=== PATIENT | male | born 1960 | race Hispanic/Latino ===

== ENCOUNTER 2018-07-21 11:43 | Emergency (ER) | payer OTHER ==
--- NOTE | 2018-07-21 12:51 | RAD REPORT ---
EXAM DESCRIPTION: CT - CTHCSPWOC - 07/21/2018 12:36 pm CLINICAL HISTORY: Trauma, head and neck injury. PAIN COMPARISON: No comparisons TECHNIQUE: Axial 5 mm thick images of the head were obtained. Axial 2 mm thick images of the cervical spine were obtained with sagittal and coronal reconstruction images generated and reviewed. All CT scans are performed using dose optimization technique as appropriate and may include automated exposure control or mA/KV adjustment according to patient size. FINDINGS: CT HEAD WITHOUT CONTRAST: No acute hemorrhage, hydrocephalus or extra-axial collection is identified.No areas of brain edema or midline shift. Mild mucosal thickening affects the right maxillary antrum. The paranasal sinuses and mastoids are ot herwise clear.The calvarium is intact. CT CERVICAL SPINE WITHOUT CONTRAST: No fracture or subluxation.No prevertebral soft tissues swelling is identified. IMPRESSION: No acute intracranial or cervical spine findings.
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
== END 2018-07-21 13:46 | disposition home or self-care (01) ==
LOC: ER 11:43
DX: M54.2 Cervicalgia (principal)
CPT/HCPCS: 70450; 72125; 99284

== ENCOUNTER 2021-10-02 22:51 | Emergency (ER) | payer BC, OTHER ==
[2021-10-02] MEDS ORDERED: ONDANSETRON 4 MG/2 ML VIAL ONE (23:37)
[2021-10-02] MEDS ORDERED: NA CHLORIDE 0.9% 1,000 ML ONE (23:37)
[2021-10-03 06:06] LABS: ALT/SGPT 32 U/L (12-78); AST/SGOT 22 U/L (15-37); Albumin 3.7 g/dL (3.4-5.0); Alkaline Phosphatase 44 U/L (45-117); BUN Blood Urea Nitrogen 20 mg/dL (7-18); Bicarbonate 26 mmol/L (21-32); Bilirubin Total 0.6 mg/dL (0.2-1.0); Glucose Level 123 mg/dL (74-106); Lipase 110 U/L (73-393); Potassium 4.2 mmol/L (3.5-5.1); Protein, Total 7.3 g/dL (6.4-8.2); Sodium Level 138 mmol/L (136-145)
[2021-10-03 06:12] LABS: Absolute Lymphocytes (CBC) 1.2 K/uL (0.7-4.9); Hematocrit 43.8 % (39.6-49.0); MPV 7.6 fL (7.6-11.3); RBC Red Blood Cell Count 4.91 M/uL (4.33-5.43)
[2021-10-03 06:15] LABS: SARS-COV-2 RT PCR NEGATIVE (NEGATIVE)
--- NOTE | 2021-10-03 11:58 | RAD REPORT ---
EXAM DESCRIPTION: CT - Abdomen Pelvis W Contrast - 10/03/2021 4:59 am CLINICAL HISTORY: 61 years, Male, PAIN COMPARISON: None. TECHNIQUE: Contrast-enhanced images of the abdomen and pelvis were performed utilizing 5 mm slice th ickness at 5 mm interval reconstruction from the lung bases to the ischial tuberosities after the adm inistration IV contrast. In addition multiplanar reformats in the coronal and sagittal plane were obtained and reviewed. This exam was performed according to our departmental dose-optimization protocol, which includes auto mated exposure control, adjustment of the mA and/or kV according to patient size and/or use of iterat angi reconstruction technique. FINDINGS: The lung bases demonstrate very minimal dependent atelectatic changes. Mild elevation of t he right hemidiaphragm.. The liver, gallbladder, pancreas, spleen and adrenal glands demonstrate to be unremarkable, no focal lesions are noted. The kidneys demonstrate normal uptake of contrast media. No evidence for nephrolithiasis and/or hydro nephrosis. Grossly the unopacified stomach, small bowel and large bowel demonstrate to be within normal limits. There is no evidence for bowel dilatation/or free air. The appendix is normal. There is mild feca l stasis The urinary bladder demonstrate to be distended. The prostate gland is slightly prominent perhaps r elated to BPH. The aorta demonstrate to be normal. There is no retroperitoneal lymphadenopathy. T here is no evidence for ascites/or significant abnormal fluid collection. There is a small bilateral inguinal hernias containing omentum, greater left than right. The bone windows demonstrate minimal degenerative changes L5/S1. IMPRESSION: UNREMARKABLE CT SCAN OF THE ABDOMEN AND PELVIS WITH CONTRAST. Electronically signed by: Jerry Miller MD 10/03/2021 1:59 AM CDT Due to temporary technical issues with the PACS/Fluency reporting system, reports are being signed by the in house radiologists without review as a courtesy to insure prompt reporting. The interpreting radiologist is fully responsible for the content of the report.
--- NOTE | 2021-10-03 12:55 | EDPHYS ---
Physician Documentation [facility] Name: Elías George Age: 61 yrs Sex: Male : 1960 Arrival Date: 10/02/2021 Time: 22:54 Bed 2 Private MD: ED Physician Lucas Luque HPI: 10/02 23:22 This 61 yrs old Male presents to ER via Unassigned with complaints of rn Abdominal Pain. 23:22 The patient presents with abdominal pain. The patient presents with abdominal pain in rn the lower abdomen, in the left lower quadrant. Onset: The symptoms/episode began/occurred today. The symptoms do not radiate. Associated signs and symptoms: Pertinent positives: nausea, Pertinent negatives: blood in stools, fever, shortness of breath, testicular pain, vomiting, vomiting blood. The symptoms are described as achy, crampy. Modifying factors: The symptoms are alleviated by nothing, the symptoms are aggravated by nothing. Severity of pain: At its worst the pain was moderate in the emergency department the pain has improved. The patient has not experienced similar symptoms in the past. The patient has not recently seen a physician. Pt reports intermittent lower abd pain, worse in LLQ, assoc with nausea and some diarrhea. No sick contacts. No fever. No blood in stool. NO trauma. . Historical: - Allergies: 23:24 No Known Allergies; as6 - Home Meds: 23:24 None [Active]; as6 - PMHx: 23:24 None; as6 - PSHx: 23:24 None; as6 - Immunization history:: Client reports receiving the 2nd dose of the Covid vaccine, moderna . - Social history:: Smoking status: Patient denies any tobacco usage or history of. Patient/guardian denies using alcohol. - Family history:: not pertinent. - Hospitalizations: : No recent hospitalization is reported. ROS: 23:22 Constitutional: Negative for fever, chills, and weight loss, Eyes: Negative for injury, rn pain, redness, and discharge, ENT: Negative for injury, pain, and discharge, Neck: Negative for injury, pain, and swelling, Cardiovascular: Negative for chest pain, palpitations, and edema, Respiratory: Negative for shortness of breath, cough, wheezing, and pleuritic chest pain, Abdomen/GI: + lower abd pain and nausea Back: Negative for injury and pain, : Negative for injury, bleeding, discharge, and swelling, MS/Extremity: Negative for injury and deformity, Skin: Negative for injury, rash, and discoloration, Neuro: Negative for headache, weakness, numbness, tingling, and seizure. 23:22 All other systems are negative. Exam: 23:22 Constitutional: This is a well developed, well nourished patient who is awake, alert, rn and in no acute distress. Head/Face: Normocephalic, atraumatic. Eyes: Periorbital areas with no swelling, redness, or edema. ENT: MMM Cardiovascular: Regular rate and rhythm. No pulse deficits. Respiratory: No increased work of breathing, no retractions or nasal flaring. Abdomen/GI: soft, + tender LUQ and LLQ, no rebound, no masses Skin: Warm, dry MS/ Extremity: Pulses equal, no cyanosis. Neuro: Awake and alert, GCS 15 Vital Signs: 23:21 BP 153 / 94; Pulse 71; Resp 18 S; Temp 98.8(O); Pulse Ox 99% on R/A; Weight 84.37 kg as6 (R); Height 5 ft. 10 in. (177.80 cm) (R); Pain 8/10; 10/03 00:54 BP 123 / 74; Pulse 71; Resp 18 S; Pulse Ox 97% on R/A; as6 02:13 BP 124 / 87; Pulse 61; Resp 18 S; Pulse Ox 99% on R/A; as6 10/02 23:21 Body Mass Index 26.69 (84.37 kg, 177.80 cm) as6 MDM: 10/02 23:04 Patient medically screened. rn 10/03 02:06 Differential diagnosis: appendicitis, bowel obstruction, diverticulitis, non-specific rn abd pain, obstruction, enteritis, colitis, viral infection. Data reviewed: vital signs, nurses notes, lab test result(s), radiologic studies, CT scan, and as a result, I will discharge patient. Counseling: I had a detailed discussion with the patient and/or guardian regarding: the historical points, exam findings, and any diagnostic results supporting the discharge/admit diagnosis, lab results, radiology results, the need for outpatient follow up, to return to the emergency department if symptoms worsen or persist or if there are any questions or concerns that arise at home. Response to treatment: the patient's symptoms have mildly improved after treatment, and as a result, I will discharge patient. Special discussion: Based on the patient's Hx, exam, and Dx evaluation, there is no indication for emergent surgery or inpatient Tx. It is understood by the patient/guardian that if the Sx's persist or worsen they need to return immediately for re-evaluation. I discussed with the patient/guardian in detail that at this point there is no indication for admission to the hospital. It is understood, however, that if the symptoms persist or worsen the patient needs to return immediately for re-evaluation. ED course: CT abdomen no acute findings. Most likely viral syndrome. Stable vitals, feels better, will dc home. . 02:26 ED course: Pain resolved, states feels much better. . rn 10/02 23:08 Order name: IV Saline Lock; Complete Time: 23:27 rn 10/02 23:08 Order name: Labs collected and sent; Complete Time: 23:27 rn Administered Medications: 10/02 23:36 Drug: NS 0.9% 1000 ml Route: IV; Rate: 1000 ml; Site: right antecubital; as6 10/03 01:25 Follow up: Response: No adverse reaction; IV Status: Completed infusion; IV Intake: as6 1000ml 10/02 23:37 Drug: Zofran (Ondansetron) 4 mg Route: IVP; Site: right antecubital; as6 10/03 01:26 Follow up: Response: No adverse reaction as6 Disposition Summary: 10/03/21 02:12 Discharge Ordered Location: Home rn Problem: new rn Symptoms: have improved rn Condition: Stable rn Diagnosis - Abdominal pain, unspecified rn - Nausea rn Followup: rn - With: Private Physician - When: As needed - Reason: Recheck today's complaints, Re-evaluation by your physician Discharge Instructions: - Discharge Summary Sheet rn - Abdominal Pain, Adult rn - Nausea, Adult rn Forms: - Medication Reconciliation Form rn - Thank You Letter rn - Antibiotic internal recruiter - Prescription Opioid Use rn Prescriptions: - ondansetron 4 mg Oral tablet,disintegrating - take 1 tablet by ORAL route every 8 hours As needed; 10 tablet; Refills: 0, rn Product Selection Permitted Signatures: Lucas Luque MD MD rn Luis Dangelo, ALBA RN as6
--- NOTE | 2021-10-03 12:55 | ER ---
Nurse's Notes [facility] Name: Elías George Age: 61 yrs Sex: Male : 1960 Arrival Date: 10/02/2021 Time: 22:54 Bed 2 Private MD: Diagnosis: Abdominal pain, unspecified;Nausea Presentation: 10/02 23:21 Chief complaint: Patient states: "I've been having this pain all day and I'm having as6 trouble going to the bathroom" pt c/o abdominal pain and nausea. Coronavirus screen: At this time, the client does not indicate any symptoms associated with coronavirus-19. Ebola Screen: No symptoms or risks identified at this time. Initial Sepsis Screen: Does the patient meet any 2 criteria? No. Patient's initial sepsis screen is negative. Does the patient have a suspected source of infection? No. Patient's initial sepsis screen is negative. Risk Assessment: Do you want to hurt yourself or someone else? Patient reports no desire to harm self or others. Onset of symptoms was October 02, 2021. 23:21 Method Of Arrival: Ambulatory as6 23:21 Acuity: SUJATA 3 as6 Historical: - Allergies: 23:24 No Known Allergies; as6 - Home Meds: 23:24 None [Active]; as6 - PMHx: 23:24 None; as6 - PSHx: 23:24 None; as6 - Immunization history:: Client reports receiving the 2nd dose of the Covid vaccine, moderna . - Social history:: Smoking status: Patient denies any tobacco usage or history of. Patient/guardian denies using alcohol. - Family history:: not pertinent. - Hospitalizations: : No recent hospitalization is reported. Screenin:25 Abuse screen: Denies threats or abuse. Denies injuries from another. Nutritional as6 screening: No deficits noted. Tuberculosis screening: No symptoms or risk factors identified. Fall Risk None identified. Assessment: 23:25 General: Appears in no apparent distress. Behavior is calm, cooperative. Pain: as6 Complains of pain in abdomen Quality of pain is described as crampy, Is intermittent. Neuro: Level of Consciousness is awake, alert, obeys commands, Oriented to person, place, time, situation. Cardiovascular: Capillary refill < 3 seconds Patient's skin is warm and dry. Respiratory: Airway is patent Trachea midline Respiratory effort is even, unlabored, Respiratory pattern is regular, symmetrical. GI: Bowel sounds present X 4 quads. Abd is soft Reports lower abdominal pain, upper abdominal pain, constipation, nausea. Vital Signs: 23:21 BP 153 / 94; Pulse 71; Resp 18 S; Temp 98.8(O); Pulse Ox 99% on R/A; Weight 84.37 kg as6 (R); Height 5 ft. 10 in. (177.80 cm) (R); Pain 8/10; 10/03 00:54 BP 123 / 74; Pulse 71; Resp 18 S; Pulse Ox 97% on R/A; as6 02:13 BP 124 / 87; Pulse 61; Resp 18 S; Pulse Ox 99% on R/A; as6 10/02 23:21 Body Mass Index 26.69 (84.37 kg, 177.80 cm) as6 ED Course: 10/02 22:54 Patient arrived in ED. bp1 23:04 Lucas Luque MD is Attending Physician. rn 23:08 Luis Dangelo RN is Primary Nurse. as6 23:24 Triage completed. as6 23:24 Arm band placed on. as6 23:25 Placed in gown. Bed in low position. Call light in reach. Side rails up X2. Adult w/ as6 patient. Pulse ox on. NIBP on. 23:27 Inserted saline lock: 20 gauge in right antecubital area, using aseptic technique. ds4 Blood collected. 10/03 02:45 No provider procedures requiring assistance completed. IV discontinued, intact, as6 bleeding controlled, No redness/swelling at site. Pressure dressing applied. Administered Medications: 10/02 23:36 Drug: NS 0.9% 1000 ml Route: IV; Rate: 1000 ml; Site: right antecubital; as6 10/03 01:25 Follow up: Response: No adverse reaction; IV Status: Completed infusion; IV Intake: as6 1000ml 10/02 23:37 Drug: Zofran (Ondansetron) 4 mg Route: IVP; Site: right antecubital; as6 10/03 01:26 Follow up: Response: No adverse reaction as6 Intake: 01:25 IV: 1000ml; Total: 1000ml. as6 Outcome: 02:12 Discharge ordered by . rn 02:49 Discharged to home ambulatory, with significant other. as6 02:49 Condition: stable 02:49 Discharge instructions given to patient, family, Instructed on discharge instructions, follow up and referral plans. medication usage, Demonstrated understanding of instructions, follow-up care, medications, Prescriptions given X 1. 02:49 Patient left the ED. as6 Signatures: Lucas Luque MD MD rn Paul Mays4 Nicci Iniguez Ashby, ALBA RN as6
[2021-10-03 13:48] VITALS: TEMP 98.8
[2021-10-03 13:52] VITALS: BP 124/87; O2SAT 99
--- NOTE | 2021-10-07 21:23 | PN ---
Date of Progress Note: 10/07/2021 Subjective: Patient seems somewhat more oriented today and has requested going home, which is the fi rst time since he has been here, however, his magnesium has dropped and continues to have some anorex ia. His hydration status is an issue. I feel he will need 1 more day of hospitalization, monitoring magnesium replacement and he could be discharged in the a.m.. Placement has been discussed with the family and preferably it will be at home where he seems to have 24/7 help and I agree this is better than the other options that are available to him and he can continue to undergo his weekly paracente sis in [place] and when he get to himself, present here to the emergency room for some IV hydration, H and H have dropped slightly but I feel this is hydration factor. The ascitic fluid cultures are ne gative and as his stool guaiac. HR/MODL Voice ID: [id number] Report ID: [id number]
== END 2021-10-03 02:49 | disposition home or self-care (01) ==
LOC: ER 22:51
DX: R10.32 Left lower quadrant pain (principal); R11.0 Nausea; R63.0 Anorexia; Z20.822 Contact with and (suspected) exposure to COVID-19
CPT/HCPCS: 96361; 85025; 36415; 83690; 80053; 0240U; 74177; 96374; 99284; Q9967; J7030; J2405

== ENCOUNTER 2024-07-23 07:46 | Inpatient (IN) | payer BC ==
--- OUTSIDE RECORDS SUMMARY | 2024-07-23 07:48 | XMS REPORT | Continuity of Care Document ---
Author Name Unknown Address [address] [place] [address] [address]. [address] th[address] Address [address] [place] [address]. [address] [place] [address] Care Team Providers Care E Learning Designer Name Role Phone Unavailable Unavailable Unavailable Encounters Start Date/Time End Date/Time Encounter Type Admission Type Attending Clinicians Care Facility Care Department Encounter ID Source 2023-09-27 08:07:40 2023-09-27 08:07:40 Outpatient [facility] [id number] Manuelito Barney
[2024-07-23] MEDS ORDERED: MORPHINE 4 MG/ML SYR ONE ×2 (08:41→09:53)
[2024-07-23] MEDS ORDERED: FAMOTIDINE 20 MG/2 ML VIAL IV ONE (08:41)
[2024-07-23] MEDS ORDERED: ONDANSETRON 4 MG/2 ML VIAL ONE ×2 (08:41→13:57)
[2024-07-23 08:45] LABS: Absolute Lymphocytes (CBC) 1.5 K/uL (0.7-4.9); Absolute Monocytes 0.6 K/uL (0.1-1.3); Absolute Neutrophil 6.4 K/uL (1.8-8.0); Basophils % 0.5 % (0-1.3); Eosinophils % 0.2 % (0-4.4); Hematocrit 42.8 % (39.6-49.0); Hemoglobin 14.5 g/dL (13.6-17.9); Lymphocytes % 17.8 % (15.3-44.8); MCH 29.8 pg (27.0-35.0); MCHC 33.9 g/dL (32.0-36.0); MCV 87.9 fL (80-100); MPV 6.8 fL (7.6-11.3); Monocytes % 6.5 % (3.3-12.3); Platelets 265 thou/uL (152-406); RBC Red Blood Cell Count 4.87 M/uL (4.33-5.43)
[2024-07-23 08:57] LABS: Albumin 3.6 g/dL (3.4-5.0); Albumin/Globulin Ratio 0.9 (1.1-1.8); Anion Gap 7.3 mEq/L (5.0-15.0); Bilirubin Total 1.1 mg/dL (0.2-1.0); Globulin 3.9 g/dL (2.3-3.5); Potassium 3.3 mEq/L (3.5-5.1); Protein, Total 7.5 g/dL (6.4-8.2)
--- NOTE | 2024-07-23 10:58 | RAD REPORT ---
EXAMINATION: CT ABDOMEN AND PELVIS WITH CONTRAST CLINICAL INDICATION: Abdominal pain TECHNIQUE: CT abdomen and pelvis was performed, after the administration of 100 cc Isovue-300.. Sagit daron and coronal reconstructions were obtained. One or more of the following dose reduction techniques were used: Automated exposure control, adjustment of the mA and kV according to patient si ze, and iterative reconstruction. Unless otherwise specified, incidental findings do not require dedicated imaging follow-up. [id number]. Oral contrast was not given which limits evaluation of bowel and appendix. COMPARISON: .2021 FINDINGS: Images are degraded by patient motion artifact Liver, spleen, pancreas, and adrenals appear unremarkable Small renal cysts. Large left inguinal hernia contains sigmoid colon.. Mild stranding within the desiree iated fat. The proximal colon is mildly to moderately dilated.. Small amount of ascites Small right inguinal hernia Normal appendix. : IMPRESSION: Left inguinal hernia contains sigmoid colon and results in an obstruction
--- NOTE | 2024-07-23 11:08 | EDPHYS ---
Physician Documentation [facility] Name: Elías George Age: 64 yrs Sex: Male : 1960 Arrival Date: 07/23/2024 Time: 07:46 Bed 17 Private MD: ED Physician Ivan Ornelas HPI: 07/23 10:32 This 64 yrs old Male presents to ER via Ambulatory with complaints of ms3 Abdominal Pain, Constipation, Vomiting. 10:32 Elías George is a 64-year-old male presenting to the emergency department with ms3 abdominal pain and constipation since Tuesday. He reports generalized abdominal pain and has not had a bowel movement since the symptoms started. He attempted to relieve constipation with a suppository last night, but it was ineffective. Elías also reports vomiting all day yesterday, but not this morning before coming to the emergency department. He mentions the vomiting occurs after eating. The abdominal pain sometimes increases when he sits down, and he experiences pain in the area where he has had a hernia in the past. . Historical: - Allergies: 07:57 No Known Allergies; ll1 - Home Meds: 07:57 None [Active]; ll1 - PMHx: 07:57 None; ll1 - PSHx: 07:57 None; ll1 - Immunization history:: Adult Immunizations up to date. - Infectious Disease History:: Denies. - Social history:: Smoking status: Patient denies any tobacco usage or history of. ROS: 10:32 Constitutional: Negative for fever, and chills. Cardiovascular: Negative for chest ms3 pain, and palpitations. Respiratory: Negative for shortness of breath, cough, wheezing, and pleuritic chest pain, 10:32 Abdomen/GI: Positive for abdominal pain, nausea and vomiting, constipation, 10:32 All other systems are negative, Exam: 10:32 Constitutional: This is a well developed, well nourished patient who is awake, alert, ms3 and in no acute distress. Cardiovascular: Regular rate and rhythm with a normal S1 and S2. No gallops, murmurs, or rubs. Normal PMI, no JVD. No pulse deficits. Respiratory: Lungs have equal breath sounds bilaterally, clear to auscultation and percussion. No rales, rhonchi or wheezes noted. No increased work of breathing, no retractions or nasal flaring. Abdomen/GI: Soft, non-tender, with normal bowel sounds. No distension or tympany. No guarding or rebound. No evidence of tenderness throughout. Skin: Warm, dry with normal turgor. Normal color with no rashes, no lesions, and no evidence of cellulitis. 12:00 ECG was reviewed by the Attending Physician. ms3 Vital Signs: 07:57 BP 153 / 80; Pulse 78; Resp 16; Temp 98.2; Pulse Ox 96% on R/A; Weight 86.18 kg; Height ll1 5 ft. 6 in. ; Pain 10/10; 09:00 BP 151 / 78; Pulse 64; Resp 16 S; Pulse Ox 98% on R/A; aa5 10:40 BP 146 / 78; Pulse 72; Resp 16 S; Pulse Ox 96% on R/A; aa5 13:22 BP 139 / 82; Pulse 74; Resp 18; Temp 98; Pulse Ox 100% on R/A; kj2 07:57 Body Mass Index 30.67 (86.18 kg, 167.64 cm) ll1 07:57 Pain Scale: Adult ll1 MDM: 08:21 Medical Screening Exam initiated ms3 10:32 Differential diagnosis: Nonspecific abd pain, cholecystitis, pancreatitis, ms3 diverticulitis, Bowel obstruction. 11:07 Data reviewed: vital signs, nurses notes, lab test result(s), radiologic studies, and ms3 as a result, I will admit patient. Consideration of Admission/Observation Patient was admitted/placed on observation. Management of patient was discussed with the following: Hospitalist: Dr Luque. Gas Processing Plant Operator: Dr Villanueva- Keep NPO. I considered the following discharge prescriptions or medication management in the emergency department Medications were administered in the Emergency Department. See MAR. Counseling: I had a detailed discussion with the patient and/or guardian regarding the historical points, exam findings, and any diagnostic results supporting the discharge/admit diagnosis, lab results, radiology results, the need for further work-up and treatment in the hospital. Special discussion:. ED course: Left inguinal hernia unable to be reduced in the emergency department. Case was discussed with Dr. Villanueva and patient will need to be cleared for the operating room. He would like patient to remain NPO. Discussed case with hospitalist team and they accept patient.. 07/23 08:19 Order name: CBC with Diff; Complete Time: 09:56 ll1 07/23 08:19 Order name: CMP; Complete Time: 09:56 ll1 07/23 08:19 Order name: Lipase; Complete Time: 09:56 ll1 07/23 08:21 Order name: CT Abd/Pelvis - IV Contrast Only; Complete Time: 11:01 ms3 07/23 11:30 Order name: Chest Single View XRAY la1 07/23 12:38 Order name: RAD EDMS 07/23 11:30 Order name: EKG; Complete Time: 11:30 la1 07/23 08:19 Order name: IV Saline Lock; Complete Time: 08:34 ll1 07/23 08:19 Order name: Labs collected and sent; Complete Time: 08:34 ll1 07/23 11:30 Order name: EKG - Nurse/Tech; Complete Time: 11:58 la1 EC:00 Rate is 65 beats/min. Rhythm is regular. QRS Mcclure is Normal. DC interval is normal. QRS ms3 interval is normal. Clinical impression: Normal ECG. Interpreted by me. Reviewed by me. Administered Medications: 08:50 Drug: Famotidine IVP 20 mg IVP once; dilute with 10 mL 0.9% NaCl; give over 2 minutes aa5 Route: IVP; Site: left forearm; 09:00 Follow up: Response: No adverse reaction aa5 08:50 Drug: Ondansetron IVP 4 mg IVP once; over 2 minutes Route: IVP; Site: left forearm; aa5 09:00 Follow up: Response: No adverse reaction aa5 08:51 Drug: morphine IVP or IV 4 mg IVP once over 4 mins Route: IVP; Infused Over: 4 mins; aa5 Site: left forearm; 09:00 Follow up: Response: No adverse reaction aa5 10:02 Drug: morphine IVP or IV 4 mg IVP once over 4 mins Route: IVP; Infused Over: 4 mins; aa5 Site: left forearm; 10:10 Follow up: Response: No adverse reaction aa5 11:50 Drug: Piperacillin-Tazobactam IVPB 3.375 grams IVPB once over 60 mins; (mix in NS 100 aa5 mL) Route: IVPB; Infused Over: 60 mins; Site: left forearm; Disposition Summary: 07/23/24 11:07 Hospitalization Ordered Notes: Hospitalization Status: Inpatient Admission ms3 Provider: Keon Luque ms3 Condition: Stable ms3 Problem: new ms3 Symptoms: are unchanged ms3 Bed/Room Type: Standard ms3 Location: [facility] ER HOLD(07/23/24 12:39) bd Room Assignment: ERHOLD-(07/23/24 12:39) bd Diagnosis - Unilateral inguinal hernia, with obstruction, without gangrene, not specified as ms3 recurrent - Bowel obstruction ms3 - Nausea with vomiting, unspecified ms3 Forms: - Medication Reconciliation Form ms3 - SBAR form ms3 - Leadership Thank You Letter ms3 Signatures: Dispatcher [employer] EDMS Emelyn Wells Audri, RN RN aa5 Tacho Corona, WEATHERIZATION TECHNICIAN-C WEATHERIZATION TECHNICIAN-Cla1 Alexander Munoz RN RN ll1 Ivan Ornelas, DO ms3 Corrections: (The following items were deleted from the chart) 08:19 08:19 CBC+H.LAB.BRZ ordered. EDMS EDMS 08:19 08:19 COMPREHENSIVE METABOLIC PANEL+C.LAB.BRZ ordered. EDMS EDMS 08:19 08:19 LIPASE+C.LAB.BRZ ordered. EDMS EDMS 08:21 08:21 Abdomen Pelvis W Con+CT.RAD.BRZ ordered. EDMS EDMS 12:39 11:07 Telemetry/MedSurg (Inpatient) ms3 bd 12:39 11:07 ms3 bd
--- NOTE | 2024-07-23 11:08 | ER ---
Nurse's Notes [facility] Name: Elías George Age: 64 yrs Sex: Male : 1960 Arrival Date: 07/23/2024 Time: 07:46 Bed 17 Private MD: Diagnosis: Unilateral inguinal hernia, with obstruction, without gangrene, not specified as recurrent;Bowel obstruction;Nausea with vomiting, unspecified Presentation: 07/23 07:57 Chief complaint: Patient states: Abdominal pain with constipation since Tuesday ll1 morning. N/V began yesterday. No fever. Coronavirus screen: Client denies travel out of the [place] in the last 14 days. fatigue, nausea, vomiting. Client presents with at least one sign or symptom that may indicate coronavirus-19. Standard/surgical mask placed on the client. Ebola Screen: Patient denies travel to an Ebola-affected area in the 21 days before illness onset. Initial Sepsis Screen: Does the patient meet any 2 criteria? No. Patient's initial sepsis screen is negative. Does the patient have a suspected source of infection? No. Patient's initial sepsis screen is negative. Risk Assessment: Do you want to hurt yourself or someone else? Patient reports no desire to harm self or others. Onset of symptoms was July 21, 2024. 07:57 Method Of Arrival: Ambulatory ll1 07:57 Acuity: SUJATA 3 ll1 Triage Assessment: 07:59 General: Appears uncomfortable, Behavior is calm, cooperative, appropriate for age. ll1 Pain: Complains of pain in abdomen Pain currently is 10 out of 10 on a pain scale. Quality of pain is described as aching, crampy. GI: Reports lower abdominal pain, upper abdominal pain, constipation, cramping, nausea, vomiting. Historical: - Allergies: 07:57 No Known Allergies; ll1 - Home Meds: 07:57 None [Active]; ll1 - PMHx: 07:57 None; ll1 - PSHx: 07:57 None; ll1 - Immunization history:: Adult Immunizations up to date. - Infectious Disease History:: Denies. - Social history:: Smoking status: Patient denies any tobacco usage or history of. Screenin:[address] [facility] ED Fall Risk Assessment (Adult) History of falling in the last 3 months, aa5 including since admission No falls in past 3 months (0 pts) Confusion or Disorientation No (0 pts) Intoxicated or Sedated No (0 pts) Impaired Gait No (0 pts) Mobility Assist Device Used No (0 pt) Altered Elimination No (0 pt) Score/Fall Risk Level 0 - 2 = Low Risk Oriented to surroundings, Maintained a safe environment, Educated pt \T\ family on fall prevention, incl call for assistance when getting out of bed, Assessed \T\ reinforced patient's understanding of fall precautions. Abuse screen: Denies threats or abuse. Nutritional screening: No deficits noted. Tuberculosis screening: No symptoms or risk factors identified. Assessment: 08:20 General: Appears uncomfortable, Behavior is calm, cooperative. Pain: Complains of pain aa5 in right upper quadrant, left upper quadrant, right lower quadrant and left lower quadrant Pain currently is 10 out of 10 on a pain scale. Quality of pain is described as crampy, sharp, Pain began 2-3 days ago. Is intermittent, episodic, lasting a few minutes. Noted to be guarding. Neuro: Level of Consciousness is awake, alert, obeys commands, Oriented to person, place, time, situation. Cardiovascular: Heart tones S1 S2 present Patient's skin is warm and dry. Rhythm is regular. Respiratory: Airway is patent Respiratory effort is even, unlabored, Respiratory pattern is regular, symmetrical. GI: Abdomen is round non-distended, Bowel sounds present X 4 quads. Abd is soft and non tender X 4 quads. Reports lower abdominal pain, upper abdominal pain, constipation, Reports nausea/vomiting since yesterday. : No signs and/or symptoms were reported regarding the genitourinary system. EENT: No signs and/or symptoms were reported regarding the EENT system. Derm: Skin is pink, warm \T\ dry. Musculoskeletal: Range of motion: intact in all extremities. 10:00 Reassessment: Patient is alert, oriented x 3, equal unlabored respirations, skin aa5 warm/dry/pink. Patient states symptoms have not improved. MD notified of unchanged pain level. . 10:15 Reassessment: Pt to CT scan . aa5 10:40 Reassessment: Patient is alert, oriented x 3, equal unlabored respirations, skin aa5 warm/dry/pink. Patient states feeling better. Pt reports he vomited bile in CT scan, bile noted to gown, new gown applied. . 11:04 Reassessment: Dr. Ornelas at bedside . aa5 13:21 Reassessment: Patient appears in no apparent distress at this time. Patient and/or kj2 family updated on plan of care and expected duration. Pain level reassessed. Patient is alert, oriented x 3, equal unlabored respirations, skin warm/dry/pink. OR nurse arrived to take to surgery. Vital Signs: 07:57 BP 153 / 80; Pulse 78; Resp 16; Temp 98.2; Pulse Ox 96% on R/A; Weight 86.18 kg; Height ll1 5 ft. 6 in. ; Pain 10/10; 09:00 BP 151 / 78; Pulse 64; Resp 16 S; Pulse Ox 98% on R/A; aa5 10:40 BP 146 / 78; Pulse 72; Resp 16 S; Pulse Ox 96% on R/A; aa5 13:22 BP 139 / 82; Pulse 74; Resp 18; Temp 98; Pulse Ox 100% on R/A; kj2 07:57 Body Mass Index 30.67 (86.18 kg, 167.64 cm) ll1 07:57 Pain Scale: Adult ll1 ED Course: 07:50 Patient arrived in ED. im 07:50 Arm band placed on Patient placed in an exam room, on a stretcher. ll1 07:51 Ivan Ornelas DO is Attending Physician. ms3 07:59 Triage completed. ll1 08:05 Carla Sanchez, RN is Primary Nurse. aa5 08:20 Patient has correct armband on for positive identification. Placed in gown. Bed in low aa5 position. Call light in reach. Side rails up X 1. Adult w/ patient. Pulse ox on. NIBP on. 08:34 CBC with Diff Sent. ty 08:34 CMP Sent. ty 08:34 Lipase Sent. ty 08:34 Inserted saline lock: 20 gauge in left forearm, using aseptic technique. Blood ty collected. Flushed with 10 mL NS. 10:21 CT Abd/Pelvis - IV Contrast Only In Process Unspecified. EDMS 10:58 No provider procedures requiring assistance completed. aa5 11:06 Keon Luque MD is Hospitalizing Provider. ms3 11:58 EKG done, by ED staff, reviewed by Ivan Ornelas DO. aa5 12:05 Report given to ALBA Cabral. aa5 Administered Medications: 08:50 Drug: Famotidine IVP 20 mg IVP once; dilute with 10 mL 0.9% NaCl; give over 2 minutes aa5 Route: IVP; Site: left forearm; 09:00 Follow up: Response: No adverse reaction aa5 08:50 Drug: Ondansetron IVP 4 mg IVP once; over 2 minutes Route: IVP; Site: left forearm; aa5 09:00 Follow up: Response: No adverse reaction aa5 08:51 Drug: morphine IVP or IV 4 mg IVP once over 4 mins Route: IVP; Infused Over: 4 mins; aa5 Site: left forearm; 09:00 Follow up: Response: No adverse reaction aa5 10:02 Drug: morphine IVP or IV 4 mg IVP once over 4 mins Route: IVP; Infused Over: 4 mins; aa5 Site: left forearm; 10:10 Follow up: Response: No adverse reaction aa5 11:50 Drug: Piperacillin-Tazobactam IVPB 3.375 grams IVPB once over 60 mins; (mix in NS 100 aa5 mL) Route: IVPB; Infused Over: 60 mins; Site: left forearm; Medication: 10:58 VIS not applicable for this client. aa5 Outcome: 11:07 Decision to Hospitalize by Provider. ms3 13:31 Patient left the ED. kj2 Signatures: Dispatcher [employer] EDMS Carla Sanchez RN RN aa5 Alexander Munoz RN RN ll1 Ivan Ornelas DO DO ms3 Lindsey Newman Tylor ty Jordan, Krystal, RN RN kj2
[2024-07-23] MEDS ORDERED: PIPERACIL/TAZO 3.375 GM VIAL IV ONE (11:45)
[2024-07-23] MEDS ORDERED: NA CHLORIDE 0.9% 100 ML ONE (11:45)
[2024-07-23 12:37] VITALS: BMI 30.7
--- NOTE | 2024-07-23 12:37 | RAD REPORT ---
EXAM: Chest Single View HISTORY: pre op COMPARISON: None. FINDINGS: LUNGS/PLEURA: The lungs are clear. No pleural effusions or pneumothorax. No pulmonary edema. Eventrat ion of the right hemidiaphragm. MEDIASTINUM: The mediastinal silhouette is within normal limits. CARDIAC: The cardiac silhouette is within normal limits. UPPER ABDOMEN: No significant abnormality. BONES: No acute abnormality. LINES/TUBES/OTHER: N/A IMPRESSION: No evidence of acute cardiopulmonary disease.
--- NOTE | 2024-07-23 12:42 | P.HP ---
Certification for Inpatient Patient admitted to: Inpatient With expected LOS: >2 Midnights Patient will require the following post-hospital care: None Practitioner: I am a practitioner with admitting privileges, knowledge of patient current condition, hospital course, and medical plan of care. Services: Services provided to patient in accordance with Admission requirements found in Title 42 Section 412.3 of the Code of Federal Regulations Patient History Date of Service: 07/23/24 Reason for admission: Bowel obstruction History of Present Illness: 64-year-old otherwise healthy male presents to the emergency department with chief complaint of abdominal pain, vomiting. He has a known history of a left inguinal hernia which she has had for many years but he began having abdominal pain and vomiting last couple days. He was evaluated in the ER his labs were significant for a potassium of 3.3, T. bili 1.1 CT abdomen pelvis was performed which showed left inguinal hernia containing sigmoid colon and results in an obstruction. Chest x-ray was also obtained which was negative for acute findings. ED discussed case with general surgery who wishes for patient to be admitted to the hospitalist service, plan likely for operative management of left inguinal hernia with bowel obstruction - Past Medical/Surgical History -: None -: None Psychosocial/ Personal History: Lives at home with his - Family History Father -: Heart disease - Social History Alcohol use: No CD- Drugs: No Caffeine use: Yes Place of Residence: Home Review of Systems 10-point ROS is otherwise unremarkable Gastrointestinal: Nausea, Vomiting, Abdominal Pain Physical Examination - Physical Exam General: Alert, In no apparent distress, Oriented x3 HEENT: Atraumatic, PERRLA, EOMI Neck: Supple, 2+ carotid pulse no bruit, No LAD Respiratory: Clear to auscultation bilaterally, Normal air movement Cardiovascular: Regular rate/rhythm, Normal S1 S2 Gastrointestinal: Normal bowel sounds, Tenderness (Mild left lower quadrant tenderness, left inguinal hernia present) Integumentary: No rashes Neurological: Normal speech, Normal strength at 5/5 x4 extr, Normal affect - Studies Laboratory Data (last 24 hrs) 07/23/24 07/23/24 08:30 08:30 WBC 8.50 Hgb 14.5 Hct 42.8 Plt Count 265 Sodium 138 Potassium 3.3 L BUN 18 Creatinine 0.76 Glucose 123 H Total Bilirubin 1.1 H AST 14 L ALT 19 Alkaline Phosphatase 69 Lipase 20 Assessment and Plan - Plan Assessment: Bowel obstruction secondary to left inguinal hernia Plan: Bowel obstruction secondary to left inguinal hernia Discussed case with general surgery who will evaluate patient today May need surgery N.p.o., IVF, antibiotics with Zosyn As needed pain medications and antiemetics Serial abdominal exams DVT PPX: SCD Code status:full Discharge Plan: Home Plan to discharge in: Greater than 2 days - Advance Directives Does patient have a Living Will: No Does patient have a Durable POA for Healthcare: No - Code Status/Comfort Care Code Status Assessed: Yes (Full code) Critical Care: No Time Spent Managing Pts Care (In Minutes): 65
[2024-07-23] MEDS: Ringers Lactate 1,000 ML IV ONE ×2 (13:37→15:09)
[2024-07-23] MEDS ORDERED: KETOROLAC 30 MG/ML INJ ONE (13:57)
[2024-07-23] MEDS ORDERED: MIDAZOLAM HCL 2 MG/2 ML INJ ONE (13:57)
[2024-07-23] MEDS ORDERED: dexAMETHasone 10 MG/ML VIAL ONE (13:57)
[2024-07-23] MEDS ORDERED: FENTANYL CITR 100 MCG/2 ML ONE ×2 (13:57→15:15)
[2024-07-23] MEDS ORDERED: ROCURONIUM 50 MG/5 ML VIAL IV ONE (13:57)
[2024-07-23] MEDS ORDERED: LIDOCAINE 2% MPF 5 ML VIAL ONE (13:57)
[2024-07-23] MEDS ORDERED: propofoL 200 MG/20 ML VIAL IV ONE (13:57)
--- NOTE | 2024-07-23 13:58 | P.CNS ---
Date of Consult: 07/23/24 PC: This 64-year-old male presents to the emergency room with left groin pain for diagnosis and treatment. HPC: Patient has notices bulge in his left groin for the last few years. Recently got somewhat larger. Noticed that his intestines will go down particularly if he is lifting or straining at the restroom. Has been having trouble since Tuesday, the pain got worse, and he presents now. PSHx: Negative PMHx: States he may be prediabetic, being followed by his primary care Social Hx: No known allergies, on no meds Sys R: No cough, wheeze, shortness of breath. No chest pain or palpitations. Denies any urinary complaints. Says he can walk a couple of miles, and is goes to the gym on a regular basis. O/E: Awake alert vital signs are stable, in no acute distress at the moment HEENT: Within normal limits Chest: Air entry equal bilaterally Abd: Large left inguinal hernia, smaller right Spring: Intact Data: CT scan demonstrates incarcerated left inguinal hernia, right inguinal hernia Impression: Incarcerated left inguinal hernia, right inguinal hernia Plan: I will taken the operating room for laparoscopic possible open inguinal repair with mesh. The risks of this procedure have been discussed. The possibility of bleeding, infection, lack of blood flow to the intestine already. Recurrence, mesh infections, and need for further surgeries and procedures have been described. I also explained that the main concern today is his left inguinal hernia, the fact that it is stuck in the groin, and requires repair. He does have a right inguinal hernia that he is asymptomatic from. Depending on the surgical conditions at the time of surgery the right inguinal hernia may or may not be repaired. He and his both understand this, and wants to proceed.
[2024-07-23] MEDS: SUCCINYLCHOLINE 20 MG/ML (10 ML) IV ONE (14:20)
[2024-07-23] MEDS ORDERED: VECURONIUM 10 MG/VIAL IV ONE (15:13)
[2024-07-23] MEDS ORDERED: NS 0.9% VIAL 10 ML ONE (15:13)
[2024-07-23] MEDS ORDERED: GLYCOPYRROLATE 0.2 MG/ML SYR ONE (16:16)
[2024-07-23] MEDS ORDERED: NEOSTIGMINE 1 MG/ML -10 ML VIAL ONE (16:16)
--- NOTE | 2024-07-23 16:34 | P.OP ---
Preoperative diagnosis: Incarcerated left inguinal hernia, right inguinal hernia Postoperative diagnosis: The same Primary procedure: Laparoscopic reduction of incarcerated left inguinal hernia Secondary procedure: Marcella repair with mesh Other procedure(s): Attempted TEPP Estimated blood loss: Less than 20 cc Specimen: None sent Operative Technique: The patient brought the operating room and placed supine on the table. After the induction of adequate general endotracheal anesthesia, the insertion of a Read catheter, and positioning on the OR table, he was abdomen was prepped with a DuraPrep solution and he was draped in the usual aseptic manner. Attention was turned towards the umbilicus. This was injected with 0.25% Marcaine. A skin incision was then made. This brought out through the skin and subcutaneous tissue. The Visiport was used to enter the peritoneal cavity and created pneumoperitoneum to approximately 12 mmHg. Patient was then placed in March Trendelenburg and we could inspect the lower portion of the abdomen. On the left side we could see a large inguinal hernia. Gentle pressure was applied to the outside of this hernia. It was noted be very hard and solid, and it was necessary to place another 5 mm trocar into the peritoneal cavity. Applying gentle pressure on the lateral portion of the bowel we were able to gradually break the seal there and allow the bowel to be reduced back into the peritoneal cavity. The bowel was somewhat congested, we could see a sharp cut off point where it had been strangled and the ring, but it pinked up after a few moments of being reversed. We now turned to the repair of the hernia. We did inspect the right side, he does have a small but very insignificant hernia from the inside. It is about the size of a pencil eraser. Because of the bowel I do not feel that I am going to pursue the right side today we will just do the left. Attention was now turned back to get into the preperitoneal space. A subumbilical incision was then lengthened. We identified the rectus sheath. An opening was made into the rectus sheath down through which we passed the balloon dissector. This having been done the balloon dissector was inflated. We cleared out the space of the left inguinal area. However we could not get optimal viewing with our 5 mm trocars to be able to work on this due to the amount of fat that the patient had around these structures. Has returned back to her intra-abdominal approach, and converted this to a tap. The peritoneum was opened just above the defects on the anterior abdominal wall. The peritoneum was now dissected inferior manner. The spermatic cord was identified and the hernia structures were dissected off of this. The direct component of this hernia was now addressed and it was reduced well back into the peritoneal cavity. At this point a piece of medium mesh was placed into the preperitoneal space. It was anchored medially to Dominick's ligament. We put some tacks out laterally. At this point the abdomen was inspected to ensure adequate hemostasis. The peritoneum was now brought back up into position of the anterior abdominal wall and held it loosely with the pro check. At this point the patient was returned to the neutral position on the OR table. The umbilical trocar site was approximated using the Endo Close and an absorbable suture. At the the pneumoperitoneum was collapsed, the trocars removed, and ananda were applied to the skin. At the end of the procedure the patient was in a stable condition when sent to the recovery room. Needle sponge instrument count were correct. The Read catheter will be removed in the OR.
[2024-07-23] MEDS: NA CHLORIDE 0.9% 1,000 ML IV SCH (16:51)
[2024-07-23] MEDS ORDERED: MORPHINE 2 MG/ML SYR IV PRN (16:51)
[2024-07-23] MEDS: HYDROCODONE/APAP 7.5/325 MG TAB PO PRN (18:25)
[2024-07-23] MEDS: PIPER TAZO 3.375 GM in NA CHLORIDE 0.9% 100 ML IV SCH (18:25)
[2024-07-24 02:09] VITALS: O2SAT 97
[2024-07-24 05:20] LABS: Absolute Lymphocytes (CBC) 1.5 K/uL (0.7-4.9); Absolute Neutrophil 7.7 K/uL (1.8-8.0); Basophils % 0.1 % (0-1.3); Hematocrit 36.4 % (39.6-49.0); Hemoglobin 12.7 g/dL (13.6-17.9); Lymphocytes % 14.6 % (15.3-44.8); MCH 30.8 pg (27.0-35.0); MCHC 34.9 g/dL (32.0-36.0); MCV 88.3 fL (80-100); Monocytes % 9.9 % (3.3-12.3); Neutrophils % 75.4 % (41.7-73.7); Nucleated Red Blood Cells % 0.1 % (0-0); Platelets 240 thou/uL (152-406); RBC Red Blood Cell Count 4.12 M/uL (4.33-5.43)
[2024-07-24 05:42] LABS: Anion Gap 7.1 mEq/L (5.0-15.0); Magnesium 1.9 mg/dL (1.6-2.4); Potassium 4.1 mEq/L (3.5-5.1)
[2024-07-24 09:24] VITALS: TEMP 97.6
--- NOTE | 2024-07-24 12:13 | EKG ---
Test Date: 2024-07-23 Test Time: 11:56:05 Coremaker: SHERRI MEASUREMENT RESULTS: Intervals: Rate: 65 WA: 162 QRSD: 92 QT: 422 QTc: 438 [place]: P: 46 WA: 162 QRS: -14 T: -10 INTERPRETIVE STATEMENTS: Normal sinus rhythm Normal ECG Compared to ECG 02/14/2006 16:42:33 Left ventricular hypertrophy no longer present Electronically Signed On 07-24-24 12:12:13 SCALE INSTALLER by Golden Blcakwell
--- NOTE | 2024-07-24 12:19 | P.DS ---
Admission Date: 07/23/24 Discharge Date: 07/24/24 Disposition: ROUTINE DISCHARGE Discharge Condition: GOOD Reason for Admission: Bowel obstruction Brief History of Present Illness: Diagnosis Bowel obstruction secondary to left inguinal hernia HPI due 07/23/24 64-year-old otherwise healthy male presents to the emergency department with chief complaint of abdominal pain, vomiting. He has a known history of a left inguinal hernia which she has had for many years but he began having abdominal pain and vomiting last couple days. He was evaluated in the ER his labs were significant for a potassium of 3.3, T. bili 1.1 CT abdomen pelvis was performed which showed left inguinal hernia containing sigmoid colon and results in an obstruction. Chest x-ray was also obtained which was negative for acute findings. ED discussed case with general surgery who wishes for patient to be admitted to the hospitalist service, plan likely for operative management of left inguinal hernia with bowel obstruction Hospital Course: Elías presented with N/V associated with abdominal pain. CT abd/pelvis reports Left inguinal hernia contains sigmoid colon and results in an obstruction. Dr. Villanueva consulted and surgery was performed 07/23/24. He tolerated surgery without complication and has been ambulating in the hallway this morning. He remains afebrile with a normal WBC. He reports no difficulty urinating and having a BM this morning. On 07/24/24, Elías was seen on morning rounds and deemed medically stable for discharge. Elías was discharged with instructions to schedule follow-up appointments with Dr. Villanueva and PCP. Elías was provided prescriptions for [place]. Physical Exam General: Alert and Oriented x3, NAD HEENT: Atraumatic, PERRLA, EOMI Neck: Supple, 2+ carotid pulse no bruit, No LAD Respiratory: Clear to auscultation bilaterally, Normal air movement, on RA Cardiovascular: RRR, Normal S1 S2 Gastrointestinal: Normal bowel sounds, Tenderness (Mild left lower quadrant tenderness, left inguinal hernia present) Integumentary: No rashes Neurological: Normal speech, Normal strength at 5/5 x4 extr, Normal affect Vital Signs/Physical Exam: Temp Pulse Resp BP Pulse Ox 97.6 F 54 20 119/67 97 07/24/24 08:00 07/24/24 08:00 07/24/24 08:00 07/24/24 08:00 07/24/24 08:00 Laboratory Data at Discharge: WBC 10.20 thou/uL (4.3-10.9) 07/24/24 04:59 Hgb 12.7 g/dL (13.6-17.9) L D 07/24/24 04:59 Hct 36.4 % (39.6-49.0) L 07/24/24 04:59 Plt Count 240 thou/uL (152-406) 07/24/24 04:59 Sodium 137 mEq/L (136-145) 07/24/24 04:59 Potassium 4.1 mEq/L (3.5-5.1) D 07/24/24 04:59 BUN 12 mg/dL (7-18) 07/24/24 04:59 Creatinine 0.89 mg/dL (0.70-1.30) 07/24/24 04:59 Glucose 130 mg/dL (74-106) H 07/24/24 04:59 Magnesium 1.9 mg/dL (1.6-2.4) 07/24/24 04:59 Total Bilirubin 1.1 mg/dL (0.2-1.0) H 07/23/24 08:30 AST 14 U/L (15-37) L 07/23/24 08:30 ALT 19 U/L (16-61) 07/23/24 08:30 Alkaline Phosphatase 69 U/L (45-117) 07/23/24 08:30 Lipase 20 U/L (13-75) 07/23/24 08:30 Home Medications: Hydrocodone 5/APAP 325 [[place] 5/325] 1 tab PO Q6H PRN #12 tab 07/24/24 traMADol HCL [Ultram*] 50 mg PO Q6H PRN 5 Days #15 tab 07/24/24 New Medications: Hydrocodone 5/APAP 325 [[place] 5/325] 1 tab PO Q6H PRN #12 tab PRN Reason: Pain traMADol HCL [Ultram*] 50 mg PO Q6H PRN 5 Days #15 tab PRN Reason: Pain Physician Discharge Instructions: 1. Please call and schedule a follow-up appointment with your PCP in 3-5 days - Please follow-up with your PCP for medication refills/adjustments 2. Please call and schedule a follow-up appointment with Dr. Villanueva on TuesdayJul 30 -Call the clinic on to make the appointment for Tuesday 3. Continue soft GI diet 4. activity restrictions, do not lift greater than 10 pounds for three days -Ambulate often -Shower tomorrow 5. Return to the ED if symptoms worsen New medications Tramadol 50 mg Q6h as needed for pain Diet: Regular Activity: Ad miley Followup: Armando SWAN,Amanda Dorado DO [Primary Care Provider] - 1-2 Weeks Jagdeep Villanueva MD [ACTIVE - CAN ADMIT] - 07/30/24
[2024-07-24 12:39] VITALS: BP 119/69
== END 2024-07-24 13:25 | disposition home or self-care (01) | DRG 352 ==
LOC: ER 07:46 → ERHOLD 11:29 → 2ND 17:02
PROVIDERS: ADMIT Hospitalist; ATTEND Internal Medicine
PROC: 0YU64JZ Supplement Left Inguinal Region with Synthetic Substitute, Percutaneous Endoscopic Approach (ICD-10-PCS; principal; 2024-07-23 13:30)
DX: K40.30 Unilateral inguinal hernia, with obstruction, without gangrene, not specified as recurrent (principal); K59.00 Constipation, unspecified
CPT/HCPCS: 36415; 71045; 74177; 80048; 80053; 83690; 83735; 85025; 93005; 94010; 96374; 96375; 99284; A4216; A4314; J1100; J2003; J2250; J2405; J2543; J2704; J2710; J3010; J7030; J7120; Q9967